=== PATIENT | female | born 1965 | race Two or more races ===

== ENCOUNTER 2019-03-29 10:57 | Outpatient (CLI) | payer OTHER | END 2019-03-29 11:16 | disposition home or self-care (01) | LOC: NUCLEAR 10:57 | DX: I87.2 Venous insufficiency (chronic) (peripheral) (principal); I70.208 Unspecified atherosclerosis of native arteries of extremities, other extremity ==

== ENCOUNTER 2019-03-29 12:08 | Outpatient (CLI) | payer OTHER | END 2019-03-29 12:41 | disposition home or self-care (01) | LOC: MAMO-SONO 12:08 | DX: N64.4 Mastodynia (principal) ==